=== PATIENT | female | born 1955 | race Caucasian/White ===

== ENCOUNTER → 2020-07-15 16:30 | Outpatient (CLI) | payer BC, SELFPAY ==
--- NOTE | ~2020-07-15 | US_ITS ---
EXAMINATION: US soft tissue head and neck DATE: 07/15/2020 16:47 INDICATION: Lump at the left neck TECHNIQUE: Multiple grayscale and Doppler ultrasound images of the region of concern at the left neck were obtained. COMPARISON: None FINDINGS: In the region of the palpable abnormality there is prominent echogenic and shadowing atherosclerotic calcifications at the bifurcation of the left common carotid artery which appear to mildly distended the superficial wall of the artery. This appears potentially hemodynamically significant however mahendra rial velocities were not obtained to allow for estimation of the degree of stenosis. There is no rula cent 9 x 5 x 6 mm hypoechoic lymph node which is within normal limits. No other abnormal masses or fl uid collections identified. IMPRESSION: 1. Palpable abnormality of concern appears to correspond to either a small normal-sized lymph node or focal region of prominent atherosclerotic calcification at the left common carotid bifurcation which may be hemodynamically significant. Could consider further evaluation with either dedicated carotid ultrasound or carotid CT angiogram. Reviewed, dictated and finalized at location A. IMPRESSION: 1. Palpable abnormality of concern appears to correspond to either a small norm al-sized lymph node or focal region of prominent atherosclerotic calcification at the left common carotid bifurcation which may be hemodynamically significant . Could consider further evaluation with either dedicated carotid ultrasound or carotid CT angiogram.
== END ==
PROVIDERS: PCP Family Medicine; Visit Provider Physician Assistant
DX: R22.1 Localized swelling, mass and lump, neck (principal)
CPT/HCPCS: 76536

== ENCOUNTER 2020-07-28 09:46 | Outpatient (CLI) | payer BC, SELFPAY ==
--- NOTE | ~2020-07-28 | US_ITS ---
EXAMINATION: US carotid duplex BI DATE: 07/28/2020 10:15 INDICATION: Carotid stenosis TECHNIQUE: Grayscale, color Doppler, and pulsed Doppler images of the cervical carotid arteries were obtained. The degree of vessel stenosis is placed in one of the following categories: normal, <50%, 5 0-69%, >=70% but less than near-occlusion, near-occlusion, or total occlusion. Note that percent sten osis relative to normal distal artery lumen diameter is indirectly measured from velocity measurement s as described by Josef, et al. Radiology 2003; 229:340-346. Notes: Normal: Peak systolic velocity <125 centimeters/sec and no plaque <50%. Peak systolic velocity <125 ( EDV <40; ICA/CCA PSV ratio <2.0; used these factors only a tandem lesions or low cardiac output or co ntralateral disease) 50-69 %: PSV 125-230 (EDV 40-100; ratio 2-4) >= 70% but less than near occlusion: PSV greater than 230 (EDV > 100; ratio> 4.0) Near Occlusion: PSV that is variable; markedly narrowed lumen Occlusion: Absent flow on color/spectral Doppler and no lumen on morales scale. COMPARISON: None. FINDINGS: RIGHT: The right common carotid artery (CCA) peak systolic velocity (PSV) is 106 cm/s. The right internal ca rotid artery (ICA) PSV is 87 cm/s. The right ICA end-diastolic velocity (EDV) is 29 cm/s. The right I CA/CCA PSV ratio is 0.8. The external carotid artery (ECA) PSV is 171 cm/s. There is antegrade flow i n the right vertebral artery. LEFT: The left CCA PSV is 102 cm/s. The left ICA PSV is 87 cm/s. The left ICA EDV is 35 cm/s. The left ICA/ CCA PSV ratio is 0.9. The ECA PSV is 66 cm/s. There is antegrade flow in the left vertebral artery. IMPRESSION: 1. Less than 50% stenosis in the right internal carotid artery by sonographic criteria. 2. Less than 50% stenosis in the left internal carotid artery by sonographic criteria. Reviewed, dictated and finalized at location B. IMPRESSION: 1. Less than 50% stenosis in the right internal carotid artery by sonographic shaq duenas. 2. Less than 50% stenosis in the left internal carotid artery by sonographic galo marquis.
== END 2020-07-28 09:47 | disposition home or self-care (01) ==
PROVIDERS: PCP Family Medicine; Visit Provider Physician Assistant
DX: I65.23 Occlusion and stenosis of bilateral carotid arteries (principal)
CPT/HCPCS: 93880

== ENCOUNTER → 2020-08-04 09:56 | Outpatient (CLI) | payer BC, SELFPAY ==
--- NOTE | ~2020-08-04 | XR_ITS ---
EXAMINATION: XR lumbar spine min 4V DATE: 08/04/2020 10:49 INDICATION: Low back pain TECHNIQUE: Anteroposterior, lateral, and bilateral oblique views of the lumbar spine, and cone-down l ateral view of the lumbosacral junction were obtained. COMPARISON: None. FINDINGS: Bone alignment is normal. There is no fracture. The vertebral body heights are maintained. Small degenerative osteophytes project from the anterior endplates of multiple vertebral bodies. Ther e is mild multilevel facet osteoarthritis. Calcified atherosclerosis is noted. A right upper quadrant calcification appears to be within the right kidney. The bowel gas pattern is normal. IMPRESSION: 1. Mild lumbar spondylosis without acute findings. Reviewed, dictated and finalized at location B.
--- NOTE | ~2020-08-04 | XR_ITS ---
EXAMINATION: XR sacroiliac joints min 3V INDICATION: Low back pain TECHNIQUE: Three views of the sacroiliac joints are obtained. COMPARISON: None available FINDINGS: Bone alignment is normal. There is no fracture. No abnormal sclerosis or erosion is identif ied. There is mild lower lumbar spondylosis. IMPRESSION: 1. No acute osseous abnormality. Reviewed, dictated and finalized at location B.
== END ==
PROVIDERS: Visit Provider Family Medicine
DX: M54.5 Low back pain (principal); M47.816 Spondylosis without myelopathy or radiculopathy, lumbar region
CPT/HCPCS: 72110; 72202

== ENCOUNTER 2020-12-30 08:16 | Outpatient (CLI) | payer BC, SELFPAY ==
--- NOTE | ~2020-12-30 | US_ITS ---
EXAMINATION: US soft tissue head and neck DATE: 12/30/2020 09:12 INDICATION: Enlarged lymph nodes, unspecified. TECHNIQUE: Multiple grayscale and Doppler ultrasound images of the neck were obtained. COMPARISON: Ultrasound 07/15/2020 FINDINGS: In the patient's area of concern in left neck, there are normal lymph nodes. There is ather osclerosis in the left carotid bulb. IMPRESSION: 1. No abnormal neck mass or lymphadenopathy. Reviewed, dictated and finalized at location B. RVISOR ABATTOIR
== END 2020-12-30 08:17 | disposition home or self-care (01) ==
LOC: ANHIMG 08:19
PROVIDERS: PCP Internal Medicine; Visit Provider Internal Medicine
DX: I65.22 Occlusion and stenosis of left carotid artery (principal); R59.9 Enlarged lymph nodes, unspecified
CPT/HCPCS: 76536

== ENCOUNTER → 2021-01-12 03:14 | Day surgery (SDC) | payer BC, SELFPAY ==
[2021-01-09 11:25] VITALS: BMI 21.2
[2021-01-12] VITALS (11 sets, daily range): BP systolic 116–145; BP diastolic 56–87; PULSE 72–84; RESP 13–20; TEMP 35.8; O2SAT 96; BMI 22.0
[2021-01-12 07:30] LABS: Basophils Absolute Auto 0.1 K/mm3 (0.0-0.1); Basophils Percent Auto 0.7 % (0.2-1.2); Eosinophils Absolute Auto 0.1 K/mm3 (0-0.3); Eosinophils Percent Auto 1.8 % (0-4.4); Hematocrit 41.2 % (37.0-47.0); Immature Granulocyte Absolute 0.01 K/mm3 (0.00-0.031); Immature Granulocyte Percent A 0.1 % (0-0.5); Lymphocytes Absolute Auto 2.16 K/mm3 (0.9-3.2); Lymphocytes Percent Auto 31.7 % (18.3-44.2); Mean Corpuscular Hemoglobin 33.4 pg (26-34); Mean Corpuscular Volume 98.3 fl (80-100); Mean Platelet Volume 11.1 fl (7.4-10.4); Monocytes Absolute Auto 0.7 K/mm3 (0.1-0.6); Monocytes Percent Auto 10.4 % (2.6-8.5); Neutrophils Absolute Auto 3.8 K/mm3 (1.3-6.7); Neutrophils Percent Auto 55.3 % (45.5-73.1); Platelet Count Result 225 k/mm3 (150-375); Red Blood Count 4.19 M/mm3 (4.2-5.4); Red Cell Distribution Width 12.1 % (11.5-14.5); White Blood Count 6.8 K/mm3 (4.5-10.0)
[2021-01-12 07:41] LABS: Anion Gap 5 mmol/L (8-16); Blood Urea Nitrogen 18 mg/dL (7-17); Calcium 9.4 mg/dL (8.4-10.2); Carbon Dioxide 29 mmol/L (22-30); Chloride 102 mmol/L (98-107); Estimated CRCL calculation 64 ml/min; Estimated Glomerular Filt Rate > 60; Glucose 89 mg/dL (65-110); Potassium 3.9 mmol/L (3.4-5.0); Sodium 136 mmol/L (137-145)
--- NOTE | 2021-01-12 08:55 | WPDMODSED ---
Moderate Sedation Note-Pt Data Patient Data Diagnosis: Coronary artery disease Present Complaint: No cardiovascular complaints Procedure to be performed/Plan: Left heart catheterization Allergies Allergy/AdvReac Type Severity Reaction Status Date / Time Penicillins Allergy Unknown Hives Verified 01/12/21 07:19 steroids AdvReac Severe tachycardia Uncoded 01/12/21 07:19 Home Medications Medication Instructions Recorded Confirmed Type aspirin 81 mg tablet,delayed 81 mg PO DAILY 11/12/19 01/09/21 History release biotin 5,000 mcg sublingual tablet 5,000 mcg SUBLINGUAL DAILY 11/12/19 01/09/21 History flaxseed oil 1,000 mg capsule 1,000 mg PO BID 11/12/19 01/09/21 History soy isoflavone-black cohosh 155 cap PO DAILY 11/12/19 01/09/21 History root-magnolia bark 155 mg capsule pravastatin 20 mg tablet See Rx Instructions .ROUTE 11/12/20 01/09/21 Rx .COMPLEX #90 tablet C 250 mg-E 137.5 mg-zinc 12.5 250 cap PO DAILY 12/15/20 01/09/21 History dw-ttzxpo-hhfbu-svccdg-toit-kcuc capsule multivitamin 1 tablet PO DAILY 12/15/20 01/09/21 History Current Medications: Active Medications Sodium Chloride (Normal Saline Iv) 500 mls @ 100 mls/hr IV CONT .Q5H KIMBERLEY Sedation/Anesthesia: No previous sedation/anesthesia problems (including family history). [facility] Past Medical History Medical History Other spondylosis with radiculopathy, lumbar region Family History Family History Mother Hypertension Cerebrovascular accident Hyperlipidemia Heart disease Father Family history of cardiovascular disease Glaucoma Mesothelioma Sibling Hyperlipidemia Social History Social History Smoking packs per day: 1 Smoking cigarettes per day: 20.0 Years smoked: 40 Smoking pack-years: 40.00 Smoking status: Former smoker Tobacco type: cigarettes Smoking end date: 09/18/18 Additional smoking assessment comments: Smoked 1/2 pack (10 cigarettes)/day x 45 years. Quit one year ago. Alcohol intake: never Substance use: never Living arrangements: with family Mod Sed Physical Exam Physical Exam Pre Procedural Exam: Normal: Appearance, Throat, Airway, Lungs, Heart Size, Heart Rate, Heart Rhythm, Neuro Exam and Extremities Hours since solid foods: 12 Hours since liquid intake: 12 Mallampati Classification: class II Internal Medicine - PN: Obj Da Vital Signs Vital Signs: Vital Signs - 24 hr 01/12/21 07:22 Temperature 35.8 C L Pulse Rate 74 Respiratory Rate 16 Blood Pressure 123/66 Meds/Results Medications: Active Medications Generic Name Dose Route Start Last Admin Trade Name Freq PRN Reason Stop Dose Admin Sodium Chloride 500 mls @ 100 mls/hr 01/12/21 07:00 Normal Saline Iv IV CONT .Q5H KIMBERLEY Labs CBC & Chem 7: 01/12/21 07:14 01/12/21 07:14 Labs: Laboratory Results - last 24 hr 01/12/21 01/12/21 07:14 07:14 WBC 6.8 RBC 4.19 L Hgb 14.0 Hct 41.2 MCV 98.3 MCH 33.4 MCHC 34.0 RDW 12.1 Plt Count 225 MPV 11.1 H Immature Gran % (Auto) 0.1 Neut % (Auto) 55.3 Lymph % (Auto) 31.7 Evangeline % (Auto) 10.4 H Eos % (Auto) 1.8 Baso % (Auto) 0.7 Lymph # (Auto) 2.16 Evangeline # (Auto) 0.7 H Eos # (Auto) 0.1 Baso # (Auto) 0.1 Abs Immat Gran (auto) 0.01 Absolute Neuts (auto) 3.8 Absolute Nucleated RBC 0.0 Nucleated RBC % 0.0 Sodium 136 L Potassium 3.9 Chloride 102 Carbon Dioxide 29 Anion Gap 5 L BUN 18 H Creatinine 0.70 Estim Creat Clear Calc 64 Estimated GFR > 60 Glucose 89 Calcium 9.4 ASA Classification/Sedation ASA Classification/Sedation ASA Class: II Emergent: No Risks: Risks, benefits and alternatives explained and patient/family accepted plan for sedation. Patient re-evaluated immediately prior to
--- NOTE | 2021-01-12 09:27 | P.PCNCC_ITS ---
Cardiac Cath Procedure Note Date of procedure:: 01/12/21 Performing physician:: Alberto Parr MD Indication:: Coronary artery disease Brief clinical history:: this is a 65-year-old woman who was found to have coronary disease by virtue of an extensively calcified coronary artery seen on CT scan recently. She has no symptoms to suggest angina. A stress test apparently showed some mild ST segment abnormalities on the treadmill. She exercises regularly and does not have exertional symptomatology Procedure Procedure performed:: left ventriculogram coronary angiogram Angio-Seal to right femoral artery Sedation/Medication given:: fentanyl 50 mg Versed 2 mg case start time 9:01 a.m. case end time 9:18 a.m. sedation provided by Narcisa Rodriguez RN, trained observer Access site:: right femoral artery Estimated blood loss:: 15 cc Procedure note:: patient was brought to the cardiac catheterization lab in the postabsorptive state where the right femoral triangle was prepared and draped in the normal fashion. Anesthesia was provided with 1% lidocaine infiltrated locally. Using the modified Seldinger technique a 5 Macanese sheath was placed into the femoral artery after this left heart catheterization took place. I used a 5 Macanese angled pigtail catheter to measure left-sided hemodynamics and to inject and LV g in the MORATAYA projection after this I used standard 5 Macanese JR4 and then FL4 catheters to engage and inject the right and left coronary arteries respectively. Cineangiograms were then reviewed and the case was terminated. An angiogram was done of the femoral artery through the sheath after which a 6 Macanese Angio-Seal device was deployed at the puncture site with a good hemostatic result. 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 Findings:: Hemodynamics: Central aortic pressure is 158 over 78 left ventricle 158/0 end-diastolic 8. No gradient across the aortic valve upon pullback. Left ventricle: The LV is normal in size all segments contract appropriately the global ejection fraction is 60% by visual estimation. The left main coronary artery is calcified but short and nicely patent the LAD is a heavily calcified vessel especially proximally. The LAD despite being calcified is moderate caliber and is free of significant stenosis. Circumflex is a moderate caliber vessel giving rise to the marginal branches the circumflex is mildly calcified and is free of stenosis. The right coronary artery is dominant to the posterior circulation it is medium in caliber it is moderately calcified and free of stenosis. Conclusion:: 1. Right coronary dominant circulation with significant calcification but no stenotic lesions are identified 2. normal left ventricular systolic contractility 3. Angio-Seal to right femoral artery Alberto Parr MD [facility]
--- NOTE | 2021-01-12 12:26 | SUR.PHASEII ---
d/c instructions given to pt with family at bedside. written instructions given. all questions and concerns addressed. patient to f/u with dr capellan. iv d/c tip intact. patient will transport via [facility] to personal vehicle.
== END ==
PROVIDERS: PCP Internal Medicine; Visit Provider Specialist
PROC: 4A023N7 Measurement of Cardiac Sampling and Pressure, Left Heart, Percutaneous Approach (ICD-10-PCS; CPT 93452; principal; 2021-01-12 08:30)
DX: I25.10 Atherosclerotic heart disease of native coronary artery without angina pectoris (principal); R94.39 Abnormal result of other cardiovascular function study; M47.26 Other spondylosis with radiculopathy, lumbar region; Z79.82 Long term (current) use of aspirin; Z87.891 Personal history of nicotine dependence
CPT/HCPCS: 36415; 80048; 85025; 93458; C1760; C1887; C1894; G0269; J1644; J2250; J3010; J7040

== ENCOUNTER 2022-03-19 08:02 | Outpatient (CLI) | payer MEDICARE, SELFPAY ==
--- NOTE | ~2022-03-19 | XR_ITS ---
EXAMINATION: XR_CERV2-3V_CR DATE: 03/19/2022 08:29 INDICATION: Right-sided neck pain. TECHNIQUE: 4 views of cervical spine were obtained. COMPARISON: None. FINDINGS: There is 6 degrees levocurvature of cervicothoracic spine. There is 2 mm anterolisthesis of C3 on C4. There is kyphosis of cervical spine. Vertebral body heights are normal. There is severely decreased disc height at C4-C5, moderately decreased disc height at C5-C6, and severely decreased dis c height at C6-C7. There is multilevel uncovertebral joint osteoarthritis, severe on the right at C4- C5 and C5-C6 and severe bilaterally at C6-C7. There is multilevel mild facet joint osteoarthritis. Th ere is mild central canal stenosis at C4-C5, C5-C6, and C6-C7. No prevertebral soft tissue swelling. IMPRESSION: 1. Severe cervical spondylosis. Reviewed, dictated and finalized at location A. EMAN
== END 2022-03-19 08:03 | disposition home or self-care (01) ==
PROVIDERS: PCP Internal Medicine; Visit Provider Nurse Practitioner Family
DX: M54.2 Cervicalgia (principal); M43.02 Spondylolysis, cervical region
CPT/HCPCS: 72040

== ENCOUNTER 2022-04-29 06:40 | Outpatient (CLI) | payer MEDICARE, SELFPAY ==
--- NOTE | ~2022-04-29 | XR_ITS ---
Lumbosacral Spine: AP and lateral views Clinical History: Pain COMPARISON: 07/27/2020 Findings: The normal lordotic curve is maintained. The vertebral bodies and posterior elements are i ntact. The intervertebral disc spaces are preserved. Mild facet joint arthropathy noted in the lower lumbar spine. Extensive aortic atherosclerotic calcifications are present. The sacroiliac joints are normally outlined. Impression: Mild degenerative spondylosis, similar to prior exam. Reviewed, dictated and finalized at location M. Impression: Mild degenerative spondylosis, similar to prior exam.
== END 2022-04-29 06:41 | disposition home or self-care (01) ==
PROVIDERS: PCP Internal Medicine; Visit Provider Internal Medicine
DX: M54.50 Low back pain, unspecified (principal); M43.06 Spondylolysis, lumbar region
CPT/HCPCS: 72100

== ENCOUNTER 2022-05-19 09:08 | Outpatient (CLI) | payer MEDICARE, SELFPAY ==
--- NOTE | ~2022-05-19 | MR_ITS ---
EXAMINATION: MR lumbar spine wo con DATE: 05/19/2022 09:53 INDICATION: Chronic low back pain with radiculopathy. TECHNIQUE: Magnetic resonance imaging (MRI) of the lumbar spine was performed without intravenous con trast. Sequences included sagittal T2-weighted FSE, sagittal T2-weighted FS FSE, sagittal T1-weighted FSE, and axial T2-weighted FSE. COMPARISON: Lumbar spine radiographs 04/29/2022, chest 2 views 01/12/2018 FINDINGS: There are 12 pairs of ribs. L5 is a transitional segment. There is 4 degrees dextrocurvatur e of lumbar spine. There are Schmorl's nodes at multiple levels. There is mildly decreased disc heigh t at L2-L3 and L3-L4 and severely decreased disc height at L4-L5. The distal spinal cord signal inten sity is normal. The conus medullaris is at L1. The following disc levels are specifically discussed: L1-L2: The disc does not extend beyond the endplate margin. There is mild bilateral facet joint osteo arthritis. There is no neural foraminal stenosis. There is no central canal stenosis. L2-L3: The disc is bulging. There is severe bilateral facet joint osteoarthritis. There is mild bilat eral neural foraminal stenosis. There is mild central canal stenosis. L3-L4: The disc is bulging. There is moderate bilateral facet joint osteoarthritis. There is mild miguel angel ateral neural foraminal stenosis. There is mild central canal stenosis. L4-L5: The disc is bulging and has an annular fissure. There is moderate right and mild left facet janett int osteoarthritis. There is mild bilateral neural foraminal stenosis. There is mild central canal st enosis. L5-S1: The disc does not extend beyond the endplate margin. There is no facet joint osteoarthritis. T here is no neural foraminal stenosis. There is no central canal stenosis. IMPRESSION: 1. Severe lower lumbar spondylosis. Reviewed, dictated and finalized at location A.
== END 2022-05-19 09:09 | disposition home or self-care (01) ==
PROVIDERS: PCP Internal Medicine; Visit Provider Nurse Practitioner Family
DX: M54.50 Low back pain, unspecified (principal); M43.06 Spondylolysis, lumbar region
CPT/HCPCS: 72148

== ENCOUNTER → 2022-08-20 13:53 | Outpatient (CLI) | payer MEDICARE, SELFPAY ==
--- NOTE | ~2022-08-20 | CT_ITS ---
EXAMINATION: CT lung screening DATE: 08/20/2022 14:10 INDICATION: Personal history of nicotine dependence, current smoker with 23 pack year history TECHNIQUE: Computed tomography (CT) of the chest was performed without intravenous contrast. The dose -length product (DLP) was 43.69 mGy-cm. Automated exposure control and iterative reconstruction techn Simple[employer] were employed. COMPARISON: 08/20/2016 FINDINGS: There is mild emphysema. No suspicious pulmonary nodules are identified. There is mild depe ndent atelectasis in the lower lobes. No pleural effusion or pneumothorax. No pathologically enlarged thoracic lymph nodes are identified. The heart size is normal. There is mild thoracic spondylosis. 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 IMPRESSION: 1. Lung-RADS category 1: Negative. Continue annual screening with noncontrast low-dose chest CT in 12 months. Reviewed, dictated and finalized at location B. IMPRESSION: 1. Lung-RADS category 1: Negative. Continue annual screening with noncontrast l ow-dose chest CT in 12 months.
== END ==
PROVIDERS: PCP Student in an Organized Health Care Education/Training Program; Visit Provider Student in an Organized Health Care Education/Training Program
DX: Z12.2 Encounter for screening for malignant neoplasm of respiratory organs (principal); F17.210 Nicotine dependence, cigarettes, uncomplicated
CPT/HCPCS: 71271

== ENCOUNTER → 2022-11-30 10:36 | Outpatient (CLI) | payer MEDICARE, SELFPAY ==
--- NOTE | ~2022-11-30 | DEXA_ITS ---
Bone Density Report Name: DEONTE WEBBER Age: 67 Sex: Female Ethnicity: White Date of : 1955 Indication: osteopenia; postmenopausal Referring Provider: Mariya, Rob Study: Bone densitometry was performed. Exam Date: November 30, 2022 Accession number: [id number] Bone Density: Region BMD T-score Z-score Classification AP Spine (L1-L4) 0.906 -1.3 0.5 Osteopenia Femoral Neck (Left) 0.720 -1.2 0.4 Osteopenia Total Hip (Left) 0.842 -0.8 0.4 Normal Femoral Neck (Right) 0.749 -0.9 0.6 Normal Total Hip (Right) 0.853 -0.7 0.5 Normal Total Hip Mean 0.848 -0.8 0.5 Normal World Health Organization criteria for BMD impression classify patients as: Normal (T-score at or above -1.0), Osteopenia (T-score between -1.0 and -2.5), or Osteoporosis (T-score at or below -2.5). 10-year Fracture Risk(1): Major Osteoporotic Fracture 7.7% Hip Fracture 1.2% Reported Risk Factors: [place] (), Neck BMD=0.720, BMI=21.3, smoking (1) FRAX(R) Version 3.08. Fracture probability calculated for an untreated patient. Fracture probability may be lower if the patient has received treatment. Previous Exams: Region Exam Age BMD T-score BMD Change BMD Change Date g/cm2 vs Baseline vs Previous AP Spine(L1-L4) 11/30/2022 67 0.906 -1.3 -0.018 -0.018 10/06/2018 63 0.924 -1.1 Total Hip(Left) 11/30/2022 67 0.842 -0.8 -0.034* -0.034* 10/06/2018 63 0.876 -0.5 Total Hip(Right) 11/30/2022 67 0.853 -0.7 -0.028* -0.028* 10/06/2018 63 0.881 -0.5 *Denotes significance at 95% confidence level, LSC for AP Spine = 0.022 g/cm2, LSC for Total Hip = 0.027 g/cm2 Clinical Information Provided by Patient: Smokes Patient maximum height was 65.0 Menopause Age: 57 Drinks caffeinated beverages Onset of menses at age 18 Number of children 0 Impression: The patient has low bone mass, based on the Total Spine T-score. The patient has an estimated ten-year risk of hip fracture of 1.2% and an estimated ten-year risk of major fracture of 7.7%, based on the WHO FRAX algorithm. The patient has risk factors, including: smoking. The BMD for the Total Hip(Left) decreased, changing by -0.034 since the last DXA exam. The BMD for the Total Hip(Right) decreased, changing by -0.028 since the last DXA exam. Discussion: BONE DENSITY IS LOW AT ONE OR MORE SKELETAL SITES. This patient's lowest T-score is low at one or
--- NOTE | ~2022-11-30 | MM_ITS ---
EXAMINATION: MM screening manuela BI w wanda HISTORY: Screening mammogram TECHNIQUE: Craniocaudal and mediolateral oblique 3-D tomosynthesis images were obtained and synthetic 2-D images were generated. Right rotated lateral craniocaudal view. CAD analysis was submitted and i nterpreted. COMPARISON: 10/06/2018 bilateral screening mammogram is not available from the archive. BREAST PARENCHYMAL COMPOSITION: The breasts are heterogeneously dense, which may obscure small masses . FINDINGS: There is no evidence of suspicious mass, calcification, or architectural distortion to sugg est malignancy in either breast. There has been no suspicious interval change. IMPRESSION: 1. No mammographic evidence of malignancy. 2. Recommend routine screening mammography in one year. BI-RADS Category 1: Negative Reviewed, dictated and finalized at location A.
== END ==
PROVIDERS: PCP Student in an Organized Health Care Education/Training Program; Visit Provider Student in an Organized Health Care Education/Training Program
DX: Z12.31 Encounter for screening mammogram for malignant neoplasm of breast (principal); M85.89 Other specified disorders of bone density and structure, multiple sites; Z78.0 Asymptomatic menopausal state
CPT/HCPCS: 77063; 77067; 77080

== ENCOUNTER 2023-09-13 15:25 | Outpatient (CLI) | payer MEDICARE, SELFPAY ==
--- NOTE | ~2023-09-13 | CT_ITS ---
CT Scan of the Chest without Contrast: Clinical Indication: Lung cancer screening, nicotine dependence Technique: Contiguous sections were acquired throughout the chest without intravenous contrast. Dose reduction technique was used on this scan by utilizing automated exposure control and iterative recon struction technique. The dose-length product (DLP) was 45.03 mGy-cm. COMPARISON: 08/20/2022 Findings: There is no evidence of any significant mediastinal, hilar or axillary lymphadenopathy. Coronary mahendra ry calcifications are present. There is no evidence of pleural or pericardial effusion. Stable mild biapical scarring noted. There is linear bibasilar scarring, also unchanged. 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 Impression: Lung RADS 1: Negative. 12 month follow-up screening CT advised. Reviewed, dictated and finalized at [facility]. Impression: Lung RADS 1: Negative. 12 month follow-up screening CT advised.
== END 2023-09-13 15:26 ==
LOC: MICIMG 15:26
PROVIDERS: PCP Student in an Organized Health Care Education/Training Program; Visit Provider Student in an Organized Health Care Education/Training Program
DX: Z12.2 Encounter for screening for malignant neoplasm of respiratory organs (principal); F17.210 Nicotine dependence, cigarettes, uncomplicated
CPT/HCPCS: 71271

== ENCOUNTER 2024-10-11 12:41 | Outpatient (CLI) | payer MEDICARE, SELFPAY ==
--- NOTE | ~2024-10-11 | CT_ITS ---
EXAMINATION: CT abdomen pelvis wo con DATE: 10/11/2024 13:03 INDICATION: Flank pain TECHNIQUE: Computed tomography (CT) of the abdomen and pelvis was performed without intravenous contrast. The dose-length product was 206.16 mGy-cm. Automated exposure control and iterative reconstruction technique were employed. COMPARISON: None. FINDINGS: Right lower lobe atelectasis. Heart size normal. No significant pleural or pericardial effusion. The liver, spleen, pancreas, adrenal glands are unremarkable. 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 Gallbladder is present. No renal stones. Nonobstructive bowel gas pattern. There is atherosclerosis of the aorta without aneurysm. Nonobstructive bowel gas pattern. No lymphadenopathy. No free air or free fluid. Normal appendix. Mild lumbar spondylosis with dextrocurvature. IMPRESSION: 1. No acute abdominal abnormality. 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 These are partially calcified. Reviewed, dictated and finalized at location O.
--- OUTSIDE RECORDS SUMMARY | 2024-10-11 12:53 | XMS_ITS | Clinical Summary ---
Author Organization [facility] [address] Address [address] [place] [address] Care Team Providers Care Gun Striper Name Role Phone Missael Mixon MD Primary Care Provider Allergies Active Allergy Reactions Criticality Noted Date Comments Neuromuscular Blockers, Steroidal Penicillins Medical History Medical History Date Comments Hx Other Medical 2010 laparoscopy Family History Medical History Relation Name Comments Coronary artery disease Father Bob nary artery disease; Stroke Mother Stroke; Other Other Family history of negative for thyroid disease.; Relation Name Status Comments Father Mother Other Social History Tobacco Use Types Packs/Day Years Used Date Smoking Tobacco: Never Assessed Alcohol Use Standard Drinks/Week Comments No 0 (1 standard drink = 0.6 oz pur e alcohol) Comments Unknown Sex and Gender Information Value Date Recorded Sex Assigned at Not on file Legal 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
== END 2024-10-11 12:42 | disposition home or self-care (01) ==
PROVIDERS: PCP Student in an Organized Health Care Education/Training Program; Visit Provider Student in an Organized Health Care Education/Training Program
DX: I72.2 Aneurysm of renal artery (principal)
CPT/HCPCS: 74176